=== PATIENT | male | born 2000 | race American Indian/Alaskan Native ===

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

== ENCOUNTER 2019-01-31 14:36 | Emergency (ER) | payer BC, OTHER ==
--- NOTE | 2019-01-31 14:49 | Emergency Department Report ---
Chief Complaint: Dental/Oral Stated Complaint: SORES ON GUMS/BLISTERS Time Seen by Provider: 01/31/19 14:42 - Exam Vital Signs: Vital Signs 01/31/19 14:37 Temperature 98.3 F Pulse Rate 73 Respiratory 18 Rate Blood Pressure 123/80 O2 Sat by Pulse 99 Oximetry MSE screening note: Focused history and physical exam performed. Due to findings the following was ordered: ED Disposition for MSE Condition: Stable
--- NOTE | 2019-01-31 14:54 | Emergency Department Report ---
ED Rash HPI - HPI Chief Complaint: Dental/Oral Stated Complaint: SORES ON GUMS/BLISTERS Time Seen by Provider: 01/31/19 14:42 Location: Other Suspected Cause: Other Rash Symptoms: No Itching, No Facial Swelling, No Tongue/Oral Swelling, No Breathing Difficulties, No Choking Sensation, No Wheezing/Dyspnea, No Peeling, No Blistering, No Fever, No Lightheaded, No Malaise, No Myalgias Severity: mild Other History: HERE NUMEROUS TIMES FOR SAME. SAW IMMUNOLOGY FOR P VULGARIS BUT WAS NEVER GIVEN RX. HE WAS THEN SENT TO DERM. HERE FOR PREDNISONE. CO SORES IN MOUTH. DENIES HIV. PMH. P VULGARUS. PSH. NONE. RX. NONE ED Review of Systems ROS: Stated complaint: SORES ON GUMS/BLISTERS Other details as noted in HPI Comment: All other systems reviewed and negative ED Past Medical Hx - Past Medical History Previous Medical History?: No - Surgical History Past Surgical History?: No - Family History Family history: no significant - Social History Smoking Status: Never Smoker Substance Use Type: Marijuana - Medications Home Medications: Home Medications Medication Instructions Recorded Confirmed Last Taken Type Prednisone [predniSONE 10 mg 10 mg PO .TAPER #1 tab.ds.pk 01/31/19 Unknown Rx (6-Day Pack, 21 Tabs)] Rash Exam - Exam General: Vital signs noted. No distress. Alert and acting appropriately. HEENT: No Periorbital Edema, No Conjuctival Injection, No Chemosis, No Perioral Edema, No Tongue Edema, No Uvular Edema, No Compromised Airway, No Drooling Lungs: Yes Good Air Exchange, No Wheezes, No Ronchi, No Stridor, No Cough, No Labored Respirations, No Retractions, No Use of Accessory Muscles, No Other Abnormal Lung Sounds Heart: Yes Regular, No Murmur Skin: No Urticarial Rash, No Maculopapular Rash, No Morbilliform rash, No Bulla(e), No Excoriations, No Weeping, No Tenderness, No Erythema, No Edema, No Encrustations Other: Positive: Abdomen Normal, Neurologic Normal, Musculoskeletal Normal ED Course Vital Signs 01/31/19 14:37 Temperature 98.3 F Pulse Rate 73 Respiratory 18 Rate Blood Pressure 123/80 O2 Sat by Pulse 99 Oximetry ED Medical Decision Making - Medical Decision Making Vital Signs 01/31/19 14:37 Temperature 98.3 F Pulse Rate 73 Respiratory 18 Rate Blood Pressure 123/80 O2 Sat by Pulse 99 Oximetry ABC INTACT TAKING PO VSS HERE FOR MED RX DC HOME WITH DERM REFERRAL. Critical care attestation.: If time is entered above; I have spent that time in minutes in the direct care of this critically ill patient, excluding procedure time. ED Disposition Clinical Impression: Pemphigus vulgaris Disposition: DC-01 TO HOME OR SELFCARE Is pt being admited?: No Does the pt Need Aspirin: No Condition: Stable Instructions: Candelaria Sullivan (ED) Additional Instructions: FOLLOW UP WITH DERM REFERRAL BELOW Prescriptions: Prednisone [predniSONE 10 mg (6-Day Pack, 21 Tabs)] 10 mg PO .TAPER #1 tab.ds.pk Referrals: XAVI BARKSDALE MD [Referring] - 3-5 Days Time of Disposition: 14:52
[2019-01-31 21:10] VITALS: BP 123/80
== END 2019-01-31 14:45 | disposition home or self-care (01) ==
LOC: ED 14:36
DX: L10.0 Pemphigus vulgaris (principal)
CPT/HCPCS: 99282

== ENCOUNTER 2019-02-18 11:47 | Emergency (ER) | payer BC ==
[2019-02-18 11:53] VITALS: BP 102/66
[2019-02-18] MEDS ORDERED: DECADRON IM ONE (12:07)
--- NOTE | 2019-02-18 12:11 | Emergency Department Report ---
HPI - General Chief Complaint: Dental/Oral Time Seen by Provider: 02/18/19 11:58 - HPI HPI: 18-year-old -Russian male presents to the emergency department with complaint of inflammation and sores within the mouth and going on for the past 1-2 weeks. The patient has a history of pemphigus vulgaris and this is a recurring issue for him. He says that he was referred by his top cager to a monomer purification operator but they could not get an appointment until March. He's been using some peroxide swish and spit for his symptoms without much relief. He has a history of these lesions going down into the throat. No recent travel or sick contacts at home. ED Past Medical Hx - Past Medical History Previous Medical History?: Yes - Surgical History Past Surgical History?: No - Social History Smoking Status: Never Smoker Substance Use Type: None - Medications Home Medications: Home Medications Medication Instructions Recorded Confirmed Last Taken Type Prednisone [predniSONE 10 mg 10 mg PO .TAPER #1 tab.ds.pk 01/31/19 Unknown Rx (6-Day Pack, 21 Tabs)] Nystas/Diphen/Xyl Visc/Mylanta 30 ml MM Q4H PRN #200 ml 02/18/19 Unknown Rx [Magic Mouthwash] Sulfamethoxazole/Trimethoprim 1 each PO BID #14 tablet 02/18/19 Unknown Rx [Bactrim DS TAB] predniSONE [Deltasone] 20 mg PO BID #14 tab 02/18/19 Unknown Rx ED Review of Systems ROS: Stated complaint: SORE IN MOUTH Other details as noted in HPI Comment: All other systems reviewed and negative Constitutional: denies: chills, fever Eyes: denies: eye pain, vision change ENT: throat pain, other (mouth pain). denies: ear pain Respiratory: denies: cough, shortness of breath Cardiovascular: denies: chest pain, palpitations Gastrointestinal: denies: abdominal pain, vomiting Genitourinary: denies: dysuria, discharge Musculoskeletal: denies: back pain, arthralgia Skin: other (blisters and inflammation in the mouth and tongue) Neurological: denies: headache, weakness Physical Exam - Physical Exam Vital Signs: Vital Signs 02/18/19 11:50 Temperature 97.8 F Pulse Rate 77 Respiratory 16 Rate Blood Pressure 102/66 [Left] O2 Sat by Pulse 100 Oximetry Physical Exam: GENERAL: The patient is well-developed well-nourished. HENT: Normocephalic. Atraumatic. Patient has moist mucous membranes. Patient has multiple sores and ulcerations within the mouth including the inside of the lips, the buccal mucosa. There is a white pasty layer to the tongue concerning for thrush. No drooling or trismus. One of the ulcers to the inside of the lower lip has a yellowish white discharge. EYES: Extraocular motions are intact. Pupils equal reactive to light bilaterally. NECK: Supple. Trachea is midline. CHEST/LUNGS: Clear to auscultation. There is no respiratory distress noted. HEART/CARDIOVASCULAR: Regular. There is no tachycardia. There is no murmur. ABDOMEN: There is no abdominal distention. SKIN: Skin is warm and dry. NEURO: The patient is awake, alert, and oriented. The patient is cooperative. The patient has no focal neurologic deficits. The patient has normal speech. MUSCULOSKELETAL: There is no tenderness or deformity. There is no evidence of acute injury. ED Course Vital Signs 02/18/19 11:50 Temperature 97.8 F Pulse Rate 77 Respiratory 16 Rate Blood Pressure 102/66 [Left] O2 Sat by Pulse 100 Oximetry ED Medical Decision Making - Lab Data Result diagrams: 02/18/19 12:24 02/18/19 12:24 - Medical Decision Making This patient has a history of pemphisus vulgaris. This causes him to have a history of ulcers and sores within his mouth. On examination today, the patient has a large ulceration to the inside of the lower lip but also has some yellowish-white discharge. He has a white pasty earlier to his tongue concerning for thrush. No drooling or trismus. Vital signs stable including being afebrile. Labs were unremarkable including a CBC and BMP. He has no leukocytosis. He has not been eating or drinking much recently secondary to his current symptoms and his mouth pain. He was given some IV fluid resuscitation and reevaluated afterwards and says he is feeling improved. He'll be discharged home with steroids, antibiotics, and a magic mouthwash that also contains nystatin. He was given referrals for dermatology and encouraged to follow up with PCP and his top cager. He will return to the ER with any worsening of symptoms or any acute distress. - Differential Diagnosis thrush, pemphigus vulgaris, apthous ulcer Critical Care Time: No Critical care attestation.: If time is entered above; I have spent that time in minutes in the direct care of this critically ill patient, excluding procedure time. ED Disposition Clinical Impression: Pemphigus vulgaris, Mouth sores, Thrush, oral Disposition: TO HOME OR SELFCARE Is pt being admited?: No Condition: Stable Additional Instructions: Please follow-up with your top cager, monomer purification operator, and primary care physicians. I will give you another name of a local monomer purification operator in case she wanted to try and get an appointment sooner than March. Return to the emergency Department with any worsening of your symptoms are any acute distress. Prescriptions: Sulfamethoxazole/Trimethoprim [Bactrim DS TAB] 1 each PO BID #14 tablet predniSONE [Deltasone] 20 mg PO BID #14 tab Nystas/Diphen/Xyl Visc/Mylanta [Magic Mouthwash] 30 ml MM Q4H PRN #200 ml PRN Reason: Mouth Pain Referrals: DAHLIA FERRER MD [Staff Physician] - 3-5 Days Time of Disposition: 12:14
[2019-02-18] MEDS ORDERED: NACL 0.9% 1000 ML 1,000 ML IV ONE (12:18)
[2019-02-18] MEDS ORDERED: DECADRON IV ONE (12:18)
[2019-02-18 12:37] LABS: Hematocrit 38.5 % (35.5-45.6); Hemoglobin 12.9 gm/dl (11.8-15.2); Mean Corpuscular HGB Conc 34 % (32-34); Mean Corpuscular Volume 81 fl (84-94); Platelet Count 237 K/mm3 (140-440); Red Blood Count 4.75 M/mm3 (3.65-5.03)
[2019-02-18 12:57] LABS: BUN/Creatinine Ratio 7; Blood Urea Nitrogen 7 mg/dL (9-20); Calcium 8.2 mg/dL (8.4-10.2); Hemolysis Index 4
[2019-02-18 13:55] LABS: Band Neutrophils # (Manual) 0.2 K/mm3; Basophils % (Manual) 0 % (0.0-1.8); Total Cells Counted 100
[2019-02-18 13:56] LABS: Anisocytosis 1+; Platelet Estimate Consistent w Auto
== END 2019-02-18 13:54 | disposition home or self-care (01) ==
LOC: ED 11:47
DX: L10.0 Pemphigus vulgaris (principal); B37.0 Candidal stomatitis
CPT/HCPCS: 36415; 80048; 85007; 85025; 96374; 99283; J1100; J7030

== ENCOUNTER 2019-04-27 18:44 | Emergency (ER) | payer BC ==
[2019-04-27 18:57] VITALS: BP 108/61
--- NOTE | 2019-04-27 18:58 | Event Note ---
ED Screening Note ED Screening Note: states he has rash in his mouth since last week states he has pemphigous vulgaris and uses prednisone, states he was dx by an [employer] worker state he has a PCP but did not see them states it is painful to eat or drink no PMHx no allergies to meds +tobacco +marijuana no ETOH no other drug use This initial assessment/diagnostic orders/clinical plan/treatment(s) is/are subject to change based on patients health status, clinical progression and re- assessment by fellow clinical providers in the ED. Further treatment and workup at subsequent clinical providers discretion. Patient/guardian urged not to elope from the ED as their condition may be serious if not clinically assessed and managed.
--- NOTE | 2019-04-27 19:43 | Emergency Department Report ---
ED ENT HPI - General Chief complaint: Skin Rash Stated complaint: MOUTH BROKEN OUT Time Seen by Provider: 04/27/19 18:55 Source: patient Mode of arrival: Ambulatory Limitations: No Limitations - History of Present Illness Initial comments: pt is a 18 yo male who states he has rash in his mouth since last week. 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 he has been evaluated in the ED previously for this same complaint. Pt states he has a PCP but did not see them . He also sees a surveyor geodetic but has not called them either. He states it is painful to eat or drink. no PMHx, no allergies to meds. +tobacco, +marijuana, no ETOH, no other drug use. - Related Data Previous Rx's Medication Instructions Recorded Last Taken Type Prednisone [predniSONE 10 mg 10 mg PO .TAPER #1 tab.ds.pk 01/31/19 Unknown Rx (6-Day Pack, 21 Tabs)] Sulfamethoxazole/Trimethoprim 1 each PO BID #14 tablet 02/18/19 Unknown Rx [Bactrim DS TAB] predniSONE [Deltasone] 20 mg PO BID #14 tab 02/18/19 Unknown Rx Nystas/Diphen/Xyl Visc/Mylanta 30 ml MM Q4H PRN #200 ml 04/27/19 Unknown Rx [Magic Mouthwash] predniSONE [Deltasone] 70 mg PO QDAY 5 Days #35 tab 04/27/19 Unknown Rx Allergies Allergy/AdvReac Type Severity Reaction Status Date / Time cat dander Allergy Swelling Verified 04/27/19 18:45 dog dander Allergy Swelling Verified 04/27/19 18:45 house dust Allergy Swelling Verified 04/27/19 18:45 peanut Allergy Swelling Verified 04/27/19 18:45 shellfish derived Allergy Swelling Verified 04/27/19 18:45 ED Dental HPI - General Chief complaint: Skin Rash Stated complaint: MOUTH BROKEN OUT Time Seen by Provider: 04/27/19 18:55 Source: patient Mode of arrival: Ambulatory Limitations: No Limitations - Related Data Previous Rx's Medication Instructions Recorded Last Taken Type Prednisone [predniSONE 10 mg 10 mg PO .TAPER #1 tab.ds.pk 01/31/19 Unknown Rx (6-Day Pack, 21 Tabs)] Sulfamethoxazole/Trimethoprim 1 each PO BID #14 tablet 02/18/19 Unknown Rx [Bactrim DS TAB] predniSONE [Deltasone] 20 mg PO BID #14 tab 02/18/19 Unknown Rx Nystas/Diphen/Xyl Visc/Mylanta 30 ml MM Q4H PRN #200 ml 04/27/19 Unknown Rx [Magic Mouthwash] predniSONE [Deltasone] 70 mg PO QDAY 5 Days #35 tab 04/27/19 Unknown Rx Allergies Allergy/AdvReac Type Severity Reaction Status Date / Time cat dander Allergy Swelling Verified 04/27/19 18:45 dog dander Allergy Swelling Verified 04/27/19 18:45 house dust Allergy Swelling Verified 04/27/19 18:45 peanut Allergy Swelling Verified 04/27/19 18:45 shellfish derived Allergy Swelling Verified 04/27/19 18:45 ED Review of Systems ROS: Stated complaint: MOUTH BROKEN OUT Other details as noted in HPI Comment: All other systems reviewed and negative ED Past Medical Hx - Past Medical History Previous Medical History?: Yes Additional medical history: pemphigus vulgaris - Surgical History Past Surgical History?: No - Social History Smoking Status: Current Every Day Smoker Substance Use Type: Marijuana - Medications Home Medications: Home Medications Medication Instructions Recorded Confirmed Last Taken Type Prednisone [predniSONE 10 mg 10 mg PO .TAPER #1 tab.ds.pk 01/31/19 Unknown Rx (6-Day Pack, 21 Tabs)] Sulfamethoxazole/Trimethoprim 1 each PO BID #14 tablet 02/18/19 Unknown Rx [Bactrim DS TAB] predniSONE [Deltasone] 20 mg PO BID #14 tab 02/18/19 Unknown Rx Nystas/Diphen/Xyl Visc/Mylanta 30 ml MM Q4H PRN #200 ml 04/27/19 Unknown Rx [Magic Mouthwash] predniSONE [Deltasone] 70 mg PO QDAY 5 Days #35 tab 04/27/19 Unknown Rx ED Physical Exam - General Limitations: No Limitations General appearance: alert, in no apparent distress - Head Head exam: Present: atraumatic, normocephalic - Eye Eye exam: Present: normal appearance, PERRL - ENT ENT exam: Present: mucous membranes moist, other (several areas of shallow ulcerations with pigment changes in the mouth with areas of hypopigmentation, uvula is midline, no uvular edema, no eschar, no blistering, no sloughing of the skin, tolerating secretions without difficulty) - Neurological Exam Neurological exam: Present: alert, oriented X3 - Psychiatric Psychiatric exam: Present: normal affect, normal mood - Skin Skin exam: Present: warm, dry, intact ED Course Vital Signs 04/27/19 18:55 Temperature 98.3 F Pulse Rate 73 Respiratory 18 Rate Blood Pressure 108/61 [Right] O2 Sat by Pulse 99 Oximetry ED Medical Decision Making - Medical Decision Making pt is a 18 yo male who states he has rash in his mouth since last week. 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 he has been evaluated in the ED previously for this same complaint. Pt states he has a PCP but did not see them . He also sees a surveyor geodetic but has not called them either. He states it is painful to eat or drink. no PMHx, no allergies to meds. +tobacco, +marijuana, no ETOH, no other drug use. vitals are normal. on exam: several areas of shallow ulcerations with pigment changes in the mouth with areas of hypopigmentation, uvula is midline, no uvular edema, no eschar, no blistering, no sloughing of the skin, tolerating secretions without difficulty. examination consistent with an oral pemphigous. no skin involvement. pt was placed on prednisone based on medical literature recommendations from [facility] which recommended 1 mg/kg. pt placed on 70 mg for 5 days. discussed with pt that I was only initiating his treatment from the emergency department standpoint but he would need to follow up with his addiction counselor, surveyor geodetic, or PCP to receive the rest of the course of his treatment regimen. pt also given magic mouthwash for his mouth discomfort. advised pt to please take medications as prescribed. I am initiating your treatment today for the next 5 days, you will need to see your doctor for completion of your treatment regimen. please follow up with your addiction counselor, surveyor geodetic, or primary care doctor in the next 2-3 days. return to the emergency room for any new or worsening symptoms. Critical care attestation.: If time is entered above; I have spent that time in minutes in the direct care of this critically ill patient, excluding procedure time. 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 I am initiating your treatment today for the next 5 days, you will need to see your doctor for completion of your treatment regimen. please follow up with your addiction counselor, surveyor geodetic, or primary care doctor in the next 2-3 days. return to the emergency room for any new or worsening symptoms. Prescriptions: predniSONE [Deltasone] 70 mg PO QDAY 5 Days #35 tab Nystas/Diphen/Xyl Visc/Mylanta [Magic Mouthwash] 30 ml MM Q4H PRN #200 ml PRN Reason: Mouth Pain Referrals: your, addiction counselor [Other] - 2-3 Days [facility] [Outside] - 2-3 Days [facility] [Provider Group] - 2-3 Days [facility] [place] [Outside] - 2-3 Days Time of Disposition: 19:41 Print Language: GERMAN
== END 2019-04-27 20:33 | disposition home or self-care (01) ==
LOC: ED 18:44
DX: L10.0 Pemphigus vulgaris (principal); F17.200 Nicotine dependence, unspecified, uncomplicated; F12.10 Cannabis abuse, uncomplicated; Z79.899 Other long term (current) drug therapy
CPT/HCPCS: 99282

== ENCOUNTER 2019-10-11 09:32 | Emergency (ER) | payer BC ==
[2019-10-11 09:47] VITALS: BP 118/82
[2019-10-11] MEDS ORDERED: dexAMETHasone 20 MG/5 ML VIAL IM STA (13:15)
--- NOTE | 2019-10-11 13:15 | Emergency Department Report ---
ED Rash HPI - HPI Chief Complaint: Dental/Oral Stated Complaint: LIP ISSUE Time Seen by Provider: 10/11/19 13:02 Duration: 1 Day Location: Other (lips) Rash Symptoms: Yes Blistering Severity: mild Other History: Josse is a very pleasant 69-year-old male with history of pemphigus vulgaris. For the past 10 years he has had recurring lip blisters requiring prednisone. He takes daily prednisone 20 mg per day. Recently given a formal diagnosis 3 months ago by nursing program director that [facility]. With flares he requires high dose taper of steroids. Today he awakened with blistering of the lips so sore irritated that they stick together. Has had several ED visits this year for similar presentation According to electronic medical record ED Review of Systems ROS: Stated complaint: LIP ISSUE Other details as noted in HPI Constitutional: denies: fever, malaise Respiratory: denies: cough, shortness of breath Gastrointestinal: denies: abdominal pain, nausea, vomiting Skin: rash, lesions ED Past Medical Hx - Past Medical History Previous Medical History?: Yes Additional medical history: pemphigus vulgaris - Surgical History Past Surgical History?: No - Social History Smoking Status: Never Smoker Substance Use Type: Marijuana - Medications Home Medications: Home Medications Medication Instructions Recorded Confirmed Last Taken Type Prednisone [predniSONE 10 mg 10 mg PO .TAPER #1 tab.ds.pk 01/31/19 Unknown Rx (6-Day Pack, 21 Tabs)] Sulfamethoxazole/Trimethoprim 1 each PO BID #14 tablet 02/18/19 Unknown Rx [Bactrim DS TAB] predniSONE [Deltasone] 20 mg PO BID #14 tab 02/18/19 Unknown Rx Nystas/Diphen/Xyl Visc/Mylanta 30 ml MM Q4H PRN #200 ml 04/27/19 Unknown Rx [Magic Mouthwash] predniSONE [Deltasone] 70 mg PO QDAY 5 Days #35 tab 04/27/19 Unknown Rx Prednisone [predniSONE 10 mg 10 mg PO .TAPER #1 tab.ds.pk 10/11/19 Unknown Rx (6-Day Pack, 21 Tabs)] Rash Exam - Exam General: Vital signs noted. No distress. Alert and acting appropriately. HEENT: No Periorbital Edema, No Conjuctival Injection, No Chemosis, No Perioral Edema, No Tongue Edema, No Uvular Edema, No Compromised Airway, No Drooling Lungs: Yes Good Air Exchange, No Wheezes, No Ronchi Skin: No Other (boh lips with large ulcers pink with encrustation, l) ED Course Vital Signs 10/11/19 09:35 Temperature 97.3 F L Pulse Rate 60 Respiratory 18 Rate Blood Pressure 118/82 O2 Sat by Pulse 99 Oximetry ED Medical Decision Making - Medical Decision Making recurrent lip lesions with hx of pemphigus vulgaris, treated with IM dexamethasone in ED rx: prednisone taper Critical care attestation.: If time is entered above; I have spent that time in minutes in the direct care of this critically ill patient, excluding procedure time. ED Disposition Clinical Impression: Lesion of lip, Pemphigus vulgaris Disposition: - TO HOME OR SELFCARE Is pt being admited?: No Does the pt Need Aspirin: No Condition: Stable Additional Instructions: Please contact your nursing program director for follow up. Please return to the ER if you have any concerns. Prescriptions: Prednisone [predniSONE 10 mg (6-Day Pack, 21 Tabs)] 10 mg PO .TAPER #1 tab.ds.pk Referrals: PRIMARY CARE, [Primary Care Provider] - STEPHANIE
[2019-10-11] MEDS ORDERED: NEOMY 3.5 MG/BACIT 400 UNITS/POLY B 5000 UNITS/GM OINT PACKET TP ONE ×2 (13:32→13:38)
== END 2019-10-11 13:40 | disposition home or self-care (01) ==
LOC: ED 09:32
DX: L10.0 Pemphigus vulgaris (principal); F12.10 Cannabis abuse, uncomplicated; Z79.899 Other long term (current) drug therapy; Z91.048 Other nonmedicinal substance allergy status; Z91.010 Allergy to peanuts; Z91.013 Allergy to seafood
CPT/HCPCS: 96372; 99282; J1100; A6250

== ENCOUNTER 2020-08-22 09:37 | Emergency (ER) | payer BC ==
[2020-08-22 09:44] VITALS: BP 121/77
[2020-08-22] MEDS ORDERED: dexAMETHasone 20 MG/5 ML VIAL IM ONE (10:23)
[2020-08-22] MEDS ORDERED: KETOROLAC 30 MG/1 ML INJ IM ONE (10:23)
--- NOTE | 2020-08-22 10:28 | Emergency Department Report ---
ED ENT HPI - General Chief complaint: Dental/Oral Stated complaint: ALLGERIES Time Seen by Provider: 08/22/20 10:10 Source: patient Mode of arrival: Ambulatory Limitations: No Limitations - History of Present Illness Initial comments: 19-year-old male presents to ED with oral sores x1 week. Patient states he often gets canker sores in his mouth and throat. Patient states this has been off and on for the last 7 years. Patient states he has been seen by multiple physicians. States his current senior application software engineer believes it may be pemphigus vulgaris. Patient is reporting painful swallowing, states he is able to tolerate liquids. States he has been drinking Ensure over the last week since the sores appeared. Patient states usually when he has an outbreak he will be given a dexamethasone injection, along with oral steroids. Patient states he has been given Magic mouthwash in the past, but it does not really help. Patient currently has a fever reports he normally is febrile during these outbreaks. Patient reports he has an appointment with his senior application software engineer on 08/31. -: week(s) (1) Location: other (oral cavity) Severity: moderate Quality: sharp Consistency: intermittent Improves with: other (Steroids) Worsens with: swallowing Associated Symptoms: fever - Related Data Previous Rx's Medication Instructions Recorded Last Taken Type Prednisone [predniSONE 10 mg 10 mg PO .TAPER #1 tab.ds.pk 01/31/19 Unknown Rx (6-Day Pack, 21 Tabs)] Sulfamethoxazole/Trimethoprim 1 each PO BID #14 tablet 02/18/19 Unknown Rx [Bactrim DS TAB] predniSONE [Deltasone] 20 mg PO BID #14 tab 02/18/19 Unknown Rx Nystas/Diphen/Xyl Visc/Mylanta 30 ml MM Q4H PRN #200 ml 04/27/19 Unknown Rx [Magic Mouthwash] predniSONE [Deltasone] 70 mg PO QDAY 5 Days #35 tab 04/27/19 Unknown Rx Prednisone [predniSONE 10 mg 10 mg PO .TAPER #1 tab.ds.pk 10/11/19 Unknown Rx (6-Day Pack, 21 Tabs)] predniSONE [Deltasone] 50 mg PO QDAY #5 tab 08/22/20 Unknown Rx Allergies Allergy/AdvReac Type Severity Reaction Status Date / Time cat dander Allergy Swelling Verified 08/22/20 09:39 dog dander Allergy Swelling Verified 08/22/20 09:39 house dust Allergy Swelling Verified 08/22/20 09:39 peanut Allergy Swelling Verified 08/22/20 09:39 shellfish derived Allergy Swelling Verified 08/22/20 09:39 ED Dental HPI - General Chief complaint: Dental/Oral Stated complaint: ALLGERIES Time Seen by Provider: 08/22/20 10:10 Source: patient Mode of arrival: Ambulatory Limitations: No Limitations - Related Data Previous Rx's Medication Instructions Recorded Last Taken Type Prednisone [predniSONE 10 mg 10 mg PO .TAPER #1 tab.ds.pk 01/31/19 Unknown Rx (6-Day Pack, 21 Tabs)] Sulfamethoxazole/Trimethoprim 1 each PO BID #14 tablet 02/18/19 Unknown Rx [Bactrim DS TAB] predniSONE [Deltasone] 20 mg PO BID #14 tab 02/18/19 Unknown Rx Nystas/Diphen/Xyl Visc/Mylanta 30 ml MM Q4H PRN #200 ml 04/27/19 Unknown Rx [Magic Mouthwash] predniSONE [Deltasone] 70 mg PO QDAY 5 Days #35 tab 04/27/19 Unknown Rx Prednisone [predniSONE 10 mg 10 mg PO .TAPER #1 tab.ds.pk 10/11/19 Unknown Rx (6-Day Pack, 21 Tabs)] predniSONE [Deltasone] 50 mg PO QDAY #5 tab 08/22/20 Unknown Rx Allergies Allergy/AdvReac Type Severity Reaction Status Date / Time cat dander Allergy Swelling Verified 08/22/20 09:39 dog dander Allergy Swelling Verified 08/22/20 09:39 house dust Allergy Swelling Verified 08/22/20 09:39 peanut Allergy Swelling Verified 08/22/20 09:39 shellfish derived Allergy Swelling Verified 08/22/20 09:39 ED Review of Systems ROS: Stated complaint: ALLGERIES Other details as noted in HPI Comment: All other systems reviewed and negative Constitutional: fever ENT: throat pain Skin: rash ED Past Medical Hx - Past Medical History Additional medical history: pemphigus vulgaris - Surgical History Past Surgical History?: No - Social History Smoking Status: Never Smoker Substance Use Type: None - Medications Home Medications: Home Medications Medication Instructions Recorded Confirmed Last Taken Type Prednisone [predniSONE 10 mg 10 mg PO .TAPER #1 tab.ds.pk 01/31/19 Unknown Rx (6-Day Pack, 21 Tabs)] Sulfamethoxazole/Trimethoprim 1 each PO BID #14 tablet 02/18/19 Unknown Rx [Bactrim DS TAB] predniSONE [Deltasone] 20 mg PO BID #14 tab 02/18/19 Unknown Rx Nystas/Diphen/Xyl Visc/Mylanta 30 ml MM Q4H PRN #200 ml 04/27/19 Unknown Rx [Magic Mouthwash] predniSONE [Deltasone] 70 mg PO QDAY 5 Days #35 tab 04/27/19 Unknown Rx Prednisone [predniSONE 10 mg 10 mg PO .TAPER #1 tab.ds.pk 10/11/19 Unknown Rx (6-Day Pack, 21 Tabs)] predniSONE [Deltasone] 50 mg PO QDAY #5 tab 08/22/20 Unknown Rx ED Physical Exam - General Limitations: No Limitations General appearance: alert, in no apparent distress - Head Head exam: Present: atraumatic, normocephalic - Eye Eye exam: Present: normal appearance, EOMI - ENT ENT exam: Present: other (Superficial ulcerations to tongue and oral mucosa) - Neck Neck exam: Present: normal inspection - Respiratory Respiratory exam: Present: normal lung sounds bilaterally. Absent: respiratory distress - Cardiovascular Cardiovascular Exam: Present: regular rate, normal rhythm - GI/Abdominal GI/Abdominal exam: Absent: distended - Extremities Exam Extremities exam: Present: normal inspection - Neurological Exam Neurological exam: Present: alert, oriented X3 - Psychiatric Psychiatric exam: Present: normal affect, normal mood - Skin Skin exam: Present: rash (Maculopapular rash noted to hands) ED Course Vital Signs 08/22/20 08/22/20 09:39 11:02 Temperature 101.6 F H 99.7 F H Pulse Rate 87 Respiratory 20 Rate Blood Pressure 121/77 O2 Sat by Pulse 97 Oximetry ED Medical Decision Making - Medical Decision Making 19-year-old male with pemphigus vulgaris flare. Patient has oral ulcers on exam. States able to tolerate liquids and pills. Patient given Decadron and Toradol here in ED. Will be discharged with prescription for prednisone. Patient states he has an upcoming appointment with his senior application software engineer. Return precautions advised. - Differential Diagnosis Pemphigus vulgaris, HIV, [id number]-mouth disease Critical care attestation.: If time is entered above; I have spent that time in minutes in the direct care of this critically ill patient, excluding procedure time. ED Disposition Clinical Impression: Recurrent oral ulcers Disposition: - TO HOME OR SELFCARE Is pt being admited?: No Condition: Stable Instructions: Oral Ulcers Prescriptions: predniSONE [Deltasone] 50 mg PO QDAY #5 tab Referrals: PRIMARY CARE, [Primary Care Provider] - 3-5 Days Forms: Work/School Release Form(ED) Time of Disposition: 10:33
== END 2020-08-22 10:55 | disposition home or self-care (01) ==
LOC: ED 09:37
DX: K12.1 Other forms of stomatitis (principal); Z79.899 Other long term (current) drug therapy; Z91.010 Allergy to peanuts; Z91.013 Allergy to seafood; Z88.8 Allergy status to other drugs, medicaments and biological substances
CPT/HCPCS: 96372; 99282; J1100; J1885

== ENCOUNTER 2020-08-27 17:55 | Emergency (ER) | payer BC ==
[2020-08-27 18:23] VITALS: BP 122/81
[2020-08-27] MEDS ORDERED: dexAMETHasone 20 MG/5 ML VIAL IM ONE (21:32)
[2020-08-27] MEDS ORDERED: LIDOCAINE VISCOUS 2% 15 ML ORAL LIQD PO ONE (21:32)
[2020-08-27] MEDS ORDERED: MAGIC MOUTHWASH 30ML PO ONE (21:32)
[2020-08-27] MEDS ORDERED: KETOROLAC 30 MG/1 ML INJ IM ONE (21:33)
--- NOTE | 2020-08-27 23:39 | Emergency Department Report ---
ED General Adult HPI - General Chief complaint: Dental/Oral Stated complaint: SORES ON GUM/TOUGUE Source: patient Mode of arrival: Ambulatory Limitations: No Limitations - History of Present Illness Initial comments: Patient is a 19-year-old -Luxembourger male with a history of chronic pemphigus vulgaris condition who presents to the ED with complaint of worsening painful oral ulcers with thick white cottage cheese exudates in the tongue and throat for the last 1 week. Patient states that this is an ongoing recurrent condition that he has been dealing with for many years. Patient sees a lead trainer in [facility] Dr. Lovett. Patient states that in the last 3 days he has not been able to eat anything because of worsening pain in his mouth and sore throat with dysphagia. Patient denies fever, chills, nausea, vomiting, dizziness, syncope, cough, chest pain, shortness of breath, abdominal pain, dizziness, syncope or change in vision. MD Complaint: Oral ulcers; sore throat; mouth ulcers -: Gradual, year(s) (many ) Location: mouth Radiation: non-radiation Severity scale (0 -10): 4 Quality: burning, aching, sharp Consistency: constant Improves with: none Worsens with: none Associated Symptoms: denies other symptoms. denies: confusion, chest pain, cough, diaphoresis, fever/chills, headaches, loss of appetite, malaise, nausea/vomiting, rash, seizure, shortness of breath, syncope, weakness, other Treatments Prior to Arrival: none - Related Data Previous Rx's Medication Instructions Recorded Last Taken Type Prednisone [predniSONE 10 mg 10 mg PO .TAPER #1 tab.ds.pk 01/31/19 Unknown Rx (6-Day Pack, 21 Tabs)] Sulfamethoxazole/Trimethoprim 1 each PO BID #14 tablet 02/18/19 Unknown Rx [Bactrim DS TAB] predniSONE [Deltasone] 70 mg PO QDAY 5 Days #35 tab 04/27/19 Unknown Rx Prednisone [predniSONE 10 mg 10 mg PO .TAPER #1 tab.ds.pk 10/11/19 Unknown Rx (6-Day Pack, 21 Tabs)] predniSONE [Deltasone] 50 mg PO QDAY #5 tab 08/22/20 Unknown Rx Amoxicillin [Amoxicillin TAB] 875 mg PO Q12H #20 tablet 08/27/20 Unknown Rx Ibuprofen [Motrin] 600 mg PO Q8H PRN #30 tablet 08/27/20 Unknown Rx Lidocaine Viscous 2% 10 ml MM Q6H PRN #120 ml 08/27/20 Unknown Rx Nystas/Diphen/Xyl Visc/Mylanta 30 ml PO Q4H PRN #400 ml 08/27/20 Unknown Rx [Magic Mouthwash] Nystatin [Nystatin SUSP] 10 ml PO Q6H #400 ml 08/27/20 Unknown Rx predniSONE [Deltasone] 60 mg PO DAILY #15 tab 08/27/20 Unknown Rx Allergies Allergy/AdvReac Type Severity Reaction Status Date / Time cat dander Allergy Swelling Verified 08/22/20 09:39 dog dander Allergy Swelling Verified 08/22/20 09:39 house dust Allergy Swelling Verified 08/22/20 09:39 peanut Allergy Swelling Verified 08/22/20 09:39 shellfish derived Allergy Swelling Verified 08/22/20 09:39 ED Review of Systems ROS: Stated complaint: SORES ON GUM/TOUGUE Other details as noted in HPI Constitutional: denies: chills, fever Eyes: denies: eye pain, eye discharge, vision change ENT: throat pain, other (Painful oral ulcers with white patches on the tongue and throat). denies: ear pain Respiratory: denies: cough, shortness of breath, wheezing Cardiovascular: denies: chest pain, palpitations Endocrine: no symptoms reported Gastrointestinal: denies: abdominal pain, nausea, diarrhea Genitourinary: denies: urgency, dysuria Musculoskeletal: denies: back pain, joint swelling, arthralgia Skin: denies: rash, lesions Neurological: denies: headache, weakness, paresthesias Psychiatric: denies: anxiety, depression Hematological/Lymphatic: denies: easy bleeding, easy bruising ED Past Medical Hx - Past Medical History Previous Medical History?: Yes Additional medical history: pemphigus vulgaris - Surgical History Past Surgical History?: No - Social History Smoking Status: Never Smoker Substance Use Type: None - Medications Home Medications: Home Medications Medication Instructions Recorded Confirmed Last Taken Type Prednisone [predniSONE 10 mg 10 mg PO .TAPER #1 tab.ds.pk 01/31/19 Unknown Rx (6-Day Pack, 21 Tabs)] Sulfamethoxazole/Trimethoprim 1 each PO BID #14 tablet 02/18/19 Unknown Rx [Bactrim DS TAB] predniSONE [Deltasone] 70 mg PO QDAY 5 Days #35 tab 04/27/19 Unknown Rx Prednisone [predniSONE 10 mg 10 mg PO .TAPER #1 tab.ds.pk 10/11/19 Unknown Rx (6-Day Pack, 21 Tabs)] predniSONE [Deltasone] 50 mg PO QDAY #5 tab 08/22/20 Unknown Rx Amoxicillin [Amoxicillin TAB] 875 mg PO Q12H #20 tablet 08/27/20 Unknown Rx Ibuprofen [Motrin] 600 mg PO Q8H PRN #30 tablet 08/27/20 Unknown Rx Lidocaine Viscous 2% 10 ml MM Q6H PRN #120 ml 08/27/20 Unknown Rx Nystas/Diphen/Xyl Visc/Mylanta 30 ml PO Q4H PRN #400 ml 08/27/20 Unknown Rx [Magic Mouthwash] Nystatin [Nystatin SUSP] 10 ml PO Q6H #400 ml 08/27/20 Unknown Rx predniSONE [Deltasone] 60 mg PO DAILY #15 tab 08/27/20 Unknown Rx ED Physical Exam - General Limitations: No Limitations General appearance: alert, in no apparent distress - Head Head exam: Present: atraumatic, normocephalic - Eye Eye exam: Present: normal appearance, PERRL, EOMI Pupils: Present: normal accommodation - ENT ENT exam: Present: mucous membranes moist, TM's normal bilaterally, normal external ear exam, other (Ulcerated lesions in the inner lip and oral cavity with thick white exudates and patches on the tongue and throat) - Neck Neck exam: Present: normal inspection, full ROM. Absent: tenderness - Respiratory Respiratory exam: Present: normal lung sounds bilaterally. Absent: respiratory distress, wheezes, rales, accessory muscle use - Cardiovascular Cardiovascular Exam: Present: regular rate, normal rhythm, normal heart sounds. Absent: systolic murmur, diastolic murmur, rubs, gallop - GI/Abdominal GI/Abdominal exam: Present: soft, normal bowel sounds. Absent: distended, tenderness, guarding, rebound, hyperactive bowel sounds, hypoactive bowel sounds - Extremities Exam Extremities exam: Present: normal inspection, full ROM, normal capillary refill - Back Exam Back exam: Present: normal inspection, full ROM. Absent: tenderness, CVA tenderness (R), CVA tenderness (L), muscle spasm, vertebral tenderness - Neurological Exam Neurological exam: Present: alert, oriented X3, CN II-XII intact, normal gait, reflexes normal - Psychiatric Psychiatric exam: Present: normal affect, normal mood - Skin Skin exam: Present: warm, dry, intact, normal color. Absent: rash ED Course Vital Signs 08/27/20 18:22 Temperature 98.8 F Pulse Rate 83 Respiratory 16 Rate Blood Pressure 122/81 [Right] O2 Sat by Pulse 100 Oximetry ED Medical Decision Making - Medical Decision Making This is a 19-year-old -Luxembourger male with a history of chronic pemphigus vulgaris condition who presents to the ED with complaint of worsening painful oral ulcers with thick white cottage cheese exudates in the tongue and throat for the last 1 week. Patient states that this is an ongoing recurrent condition that he has been dealing with for many years. Patient sees a lead trainer in [facility] Dr. Lovett. Patient states that in the last 3 days he has not been able to eat anything because of worsening pain in his mouth and sore throat with dysphagia. In the ED, patient is alert and oriented x3 and is not in distress with normal vital signs. Patient was treated for pain in the ED and also given steroid injection in the ED. On reevaluation, patient pain is well controlled medications. Patient was admitted discharged home on medications and advised to follow-up with his lead trainer at [facility] as previously scheduled for August 31, 2020. Patient was advised return to the ED immediately if symptoms get worse. - Differential Diagnosis Oral ulcers; oropharyngeal candidiasis; Pemphigus vulgaris flare Critical care attestation.: If time is entered above; I have spent that time in minutes in the direct care of this critically ill patient, excluding procedure time. ED Disposition Clinical Impression: Recurrent mouth ulceration, Oral pharyngeal candidiasis Disposition: DC-01 TO HOME OR SELFCARE Is pt being admited?: No Does the pt Need Aspirin: No Condition: Stable Instructions: Oral Thrush, Adult, [id number], Oral Ulcers Additional Instructions: Take medication with food, drink plenty of fluids and follow-up with your primary care physician in 5 to 7 days for reevaluation. Return to the ED immediately if symptoms get worse. Prescriptions: Amoxicillin [Amoxicillin TAB] 875 mg PO Q12H #20 tablet predniSONE [Deltasone] 60 mg PO DAILY #15 tab Lidocaine Viscous 2% 10 ml MM Q6H PRN #120 ml PRN Reason: Sore Throat Nystas/Diphen/Xyl Visc/Mylanta [Magic Mouthwash] 30 ml PO Q4H PRN #400 ml PRN Reason: Mouth Pain Ibuprofen [Motrin] 600 mg PO Q8H PRN #30 tablet PRN Reason: Pain Nystatin [Nystatin SUSP] 10 ml PO Q6H #400 ml Referrals: KRISTINA LOVETT MD [Primary Care Provider] - 3-5 Days Time of Disposition: 23:41 Print Language: SENEGALESE
== END 2020-08-28 00:10 | disposition home or self-care (01) ==
LOC: ED 17:55
DX: K12.0 Recurrent oral aphthae (principal); B37.0 Candidal stomatitis; Z79.899 Other long term (current) drug therapy; Z91.013 Allergy to seafood; Z91.010 Allergy to peanuts; Z88.8 Allergy status to other drugs, medicaments and biological substances
CPT/HCPCS: 96372; 99282; J1100; J1885

== ENCOUNTER 2020-10-31 13:08 | Emergency (ER) | payer BC, OTHER ==
--- NOTE | 2020-10-31 15:23 | Emergency Department Report ---
ED ENT HPI - General Chief complaint: Sore Throat Stated complaint: SORES IN MOUTH/THRUSH ON TOUNGE Time Seen by Provider: 10/31/20 14:23 Source: patient Mode of arrival: Ambulatory Limitations: No Limitations - History of Present Illness Initial comments: Patient is a 20-year-old male presents emergency room with complaints of sores present to the tongue and oropharynx and thrush that began about a week ago. He states that he frequently gets thrush. He states that he has a history of pemphigus vulgaris and sees a roll edge stitcher hand at [facility]. He states that he takes prednisone twice a day and dexamethasone as an oral rinse. He denies any fever, vomiting, chills, difficulty swallowing, difficulty breathing. He denies any medication allergies. - Related Data Previous Rx's Medication Instructions Recorded Last Taken Type Prednisone [predniSONE 10 mg 10 mg PO .TAPER #1 tab.ds.pk 01/31/19 Unknown Rx (6-Day Pack, 21 Tabs)] Sulfamethoxazole/Trimethoprim 1 each PO BID #14 tablet 02/18/19 Unknown Rx [Bactrim DS TAB] predniSONE 70 mg PO QDAY 5 Days #35 tab 04/27/19 Unknown Rx Prednisone [predniSONE 10 mg 10 mg PO .TAPER #1 tab.ds.pk 10/11/19 Unknown Rx (6-Day Pack, 21 Tabs)] predniSONE [Deltasone] 50 mg PO QDAY #5 tab 08/22/20 Unknown Rx Amoxicillin [Amoxicillin TAB] 875 mg PO Q12H #20 tablet 08/27/20 Unknown Rx Ibuprofen [Motrin] 600 mg PO Q8H PRN #30 tablet 08/27/20 Unknown Rx Lidocaine Viscous 2% 10 ml MM Q6H PRN #120 ml 08/27/20 Unknown Rx predniSONE [Deltasone] 60 mg PO DAILY #15 tab 08/27/20 Unknown Rx Fluconazole [Diflucan TAB] 100 mg PO QDAY 5 Days #5 tablet 10/31/20 Unknown Rx Nystas/Diphen/Xyl Visc/Mylanta 30 ml PO Q4H PRN #400 ml 10/31/20 Unknown Rx [Magic Mouthwash] Nystatin [Nystatin SUSP] 10 ml PO Q6H #400 ml 10/31/20 Unknown Rx Allergies Allergy/AdvReac Type Severity Reaction Status Date / Time cat dander Allergy Swelling Verified 10/31/20 13:17 dog dander Allergy Swelling Verified 10/31/20 13:17 house dust Allergy Swelling Verified 10/31/20 13:17 peanut Allergy Swelling Verified 10/31/20 13:17 shellfish derived Allergy Swelling Verified 10/31/20 13:17 ED Dental HPI - General Chief complaint: Sore Throat Stated complaint: SORES IN MOUTH/THRUSH ON TOUNGE Time Seen by Provider: 10/31/20 14:23 Source: patient Mode of arrival: Ambulatory Limitations: No Limitations - Related Data Previous Rx's Medication Instructions Recorded Last Taken Type Prednisone [predniSONE 10 mg 10 mg PO .TAPER #1 tab.ds.pk 01/31/19 Unknown Rx (6-Day Pack, 21 Tabs)] Sulfamethoxazole/Trimethoprim 1 each PO BID #14 tablet 02/18/19 Unknown Rx [Bactrim DS TAB] predniSONE 70 mg PO QDAY 5 Days #35 tab 04/27/19 Unknown Rx Prednisone [predniSONE 10 mg 10 mg PO .TAPER #1 tab.ds.pk 10/11/19 Unknown Rx (6-Day Pack, 21 Tabs)] predniSONE [Deltasone] 50 mg PO QDAY #5 tab 08/22/20 Unknown Rx Amoxicillin [Amoxicillin TAB] 875 mg PO Q12H #20 tablet 08/27/20 Unknown Rx Ibuprofen [Motrin] 600 mg PO Q8H PRN #30 tablet 08/27/20 Unknown Rx Lidocaine Viscous 2% 10 ml MM Q6H PRN #120 ml 08/27/20 Unknown Rx predniSONE [Deltasone] 60 mg PO DAILY #15 tab 08/27/20 Unknown Rx Fluconazole [Diflucan TAB] 100 mg PO QDAY 5 Days #5 tablet 10/31/20 Unknown Rx Nystas/Diphen/Xyl Visc/Mylanta 30 ml PO Q4H PRN #400 ml 10/31/20 Unknown Rx [Magic Mouthwash] Nystatin [Nystatin SUSP] 10 ml PO Q6H #400 ml 10/31/20 Unknown Rx Allergies Allergy/AdvReac Type Severity Reaction Status Date / Time cat dander Allergy Swelling Verified 10/31/20 13:17 dog dander Allergy Swelling Verified 10/31/20 13:17 house dust Allergy Swelling Verified 10/31/20 13:17 peanut Allergy Swelling Verified 10/31/20 13:17 shellfish derived Allergy Swelling Verified 10/31/20 13:17 ED Review of Systems ROS: Stated complaint: SORES IN MOUTH/THRUSH ON TOUNGE Other details as noted in HPI Comment: All other systems reviewed and negative ED Past Medical Hx - Past Medical History Previous Medical History?: Yes Additional medical history: pemphigus vulgaris - Surgical History Past Surgical History?: No - Social History Smoking Status: Never Smoker Substance Use Type: None - Medications Home Medications: Home Medications Medication Instructions Recorded Confirmed Last Taken Type Prednisone [predniSONE 10 mg 10 mg PO .TAPER #1 tab.ds.pk 01/31/19 Unknown Rx (6-Day Pack, 21 Tabs)] Sulfamethoxazole/Trimethoprim 1 each PO BID #14 tablet 02/18/19 Unknown Rx [Bactrim DS TAB] predniSONE 70 mg PO QDAY 5 Days #35 tab 04/27/19 Unknown Rx Prednisone [predniSONE 10 mg 10 mg PO .TAPER #1 tab.ds.pk 10/11/19 Unknown Rx (6-Day Pack, 21 Tabs)] predniSONE [Deltasone] 50 mg PO QDAY #5 tab 08/22/20 Unknown Rx Amoxicillin [Amoxicillin TAB] 875 mg PO Q12H #20 tablet 08/27/20 Unknown Rx Ibuprofen [Motrin] 600 mg PO Q8H PRN #30 tablet 08/27/20 Unknown Rx Lidocaine Viscous 2% 10 ml MM Q6H PRN #120 ml 08/27/20 Unknown Rx predniSONE [Deltasone] 60 mg PO DAILY #15 tab 08/27/20 Unknown Rx Fluconazole [Diflucan TAB] 100 mg PO QDAY 5 Days #5 tablet 10/31/20 Unknown Rx Nystas/Diphen/Xyl Visc/Mylanta 30 ml PO Q4H PRN #400 ml 10/31/20 Unknown Rx [Magic Mouthwash] Nystatin [Nystatin SUSP] 10 ml PO Q6H #400 ml 10/31/20 Unknown Rx ED Physical Exam - General Limitations: No Limitations General appearance: alert, in no apparent distress - Head Head exam: Present: atraumatic, normocephalic - Eye Eye exam: Present: normal appearance - ENT ENT exam: Present: mucous membranes moist, other (shallow ulcerations present to the tongue and oropharynx, there is a thick white plaque to the tongue) - Respiratory Respiratory exam: Absent: respiratory distress, accessory muscle use - Neurological Exam Neurological exam: Present: alert, oriented X3 - Psychiatric Psychiatric exam: Present: normal affect, normal mood - Skin Skin exam: Present: warm, dry, intact ED Course Vital Signs 10/31/20 10/31/20 13:22 16:03 Temperature 98.5 F Pulse Rate 67 64 Respiratory 16 16 Rate Blood Pressure 125/72 Blood Pressure 131/82 [Right] O2 Sat by Pulse 99 100 Oximetry ED Medical Decision Making - Medical Decision Making Patient is a 20-year-old male presents emergency room with complaints of sores present to the tongue and oropharynx and thrush that began about a week ago. He states that he frequently gets thrush. He states that he has a history of pemphigus vulgaris and sees a roll edge stitcher hand at [facility]. He states that he takes prednisone twice a day and dexamethasone as an oral rinse. He denies any fever, vomiting, chills, difficulty swallowing, difficulty breathing. He denies any medication allergies. vitals are normal. on exam: shallow ulcerations present to the tongue and oropharynx, there is a thick white plaque to the tongue. Examination appears consistent with oropharyngeal diagnosis. Patient given prescription for fluconazole, nystatin, Magic mouthwash. Advised patient Please take medication as prescribed. Please follow-up with your primary care doctor. Follow-up with your roll edge stitcher hand. Return to emergency room for any new or worsening symptoms. Critical care attestation.: If time is entered above; I have spent that time in minutes in the direct care of this critically ill patient, excluding procedure time. ED Disposition Clinical Impression: Oral thrush Disposition: -01 TO HOME OR SELFCARE Is pt being admited?: No Does the pt Need Aspirin: No Condition: Stable Instructions: Oral Thrush, Adult, [id number] Additional Instructions: Please take medication as prescribed. Please follow-up with your primary care doctor. Follow-up with your roll edge stitcher hand. Return to emergency room for any new or worsening symptoms. Prescriptions: Fluconazole [Diflucan TAB] 100 mg PO QDAY 5 Days #5 tablet Nystas/Diphen/Xyl Visc/Mylanta [Magic Mouthwash] 30 ml PO Q4H PRN #400 ml PRN Reason: Mouth Pain Nystatin [Nystatin SUSP] 10 ml PO Q6H #400 ml Referrals: your, roll edge stitcher hand [Other] - 2-3 Days your, primary care doctor [Other] - 2-3 Days Forms: Work/School Release Form(ED) Time of Disposition: 15:21 Print Language: LIBYAN
[2020-10-31 16:05] VITALS: BP 131/82
== END 2020-10-31 16:05 | disposition home or self-care (01) ==
LOC: ED 13:08
DX: B37.0 Candidal stomatitis (principal); Z79.1 Long term (current) use of non-steroidal anti-inflammatories (NSAID); Z79.2 Long term (current) use of antibiotics; Z79.899 Other long term (current) drug therapy; Z88.8 Allergy status to other drugs, medicaments and biological substances
CPT/HCPCS: 99282